=== PATIENT | male | born 1975 | race African-American/Black ===

== ENCOUNTER 2019-03-12 16:51 | Emergency (ER) | payer MEDICAID, OTHER ==
[~2019-03-12] VITALS: Ht 172.7 cm; Wt 120.0 kg
[2019-03-13] MEDS ORDERED: LIDOCAINE HCL 1%/EPI 1:200,000 30 ML VIAL MC ONE (00:45)
[2019-03-13 01:56] VITALS: BP 146/89
== END 2019-03-13 01:58 | disposition home or self-care (01) ==
LOC: ER 16:51
DX: S01.01XA Laceration without foreign body of scalp, initial encounter (principal); I10 Essential (primary) hypertension; W08.XXXA Fall from other furniture, initial encounter; Y93.89 Activity, other specified; Y92.89 Other specified places as the place of occurrence of the external cause; Y99.8 Other external cause status
CPT/HCPCS: 99283; Z7610

== ENCOUNTER 2019-04-04 09:26 | Emergency (ER) | payer MEDICAID ==
[~2019-04-04] VITALS: Ht 172.7 cm; Wt 109.0 kg
[2019-04-04 09:35] VITALS: BP 160/113
[2019-04-04] MEDS ORDERED: ACETAMINOPHEN 325MG TABLET PO ONE (11:15)
== END 2019-04-04 11:15 | disposition home or self-care (01) ==
LOC: ER 09:26
DX: S01.01XD Laceration without foreign body of scalp, subsequent encounter (principal); X58.XXXD Exposure to other specified factors, subsequent encounter
CPT/HCPCS: 99282